=== PATIENT | female | born 1935 | race Caucasian/White ===

== ENCOUNTER 2021-08-19 12:40 | Emergency (ER) | payer MEDICARE ==
[~2021-08-19] VITALS: Ht 165.1 cm; Wt 56.7 kg
[2021-08-19 12:45] VITALS: BP 174/72
[2021-08-19] MEDS ORDERED: OCTYL 2-CYANOACRYLATE 1 EACH TP ONE ×3 (13:51→14:48)
== END 2021-08-19 15:47 | disposition home or self-care (01) ==
LOC: EDH 12:40
DX: S81.812A Laceration without foreign body, left lower leg, initial encounter (principal); E03.9 Hypothyroidism, unspecified; E78.00 Pure hypercholesterolemia, unspecified; I10 Essential (primary) hypertension; K21.9 Gastro-esophageal reflux disease without esophagitis; Z87.442 Personal history of urinary calculi; Z88.1 Allergy status to other antibiotic agents; Z88.8 Allergy status to other drugs, medicaments and biological substances; X58.XXXA Exposure to other specified factors, initial encounter; Y93.89 Activity, other specified; Y92.89 Other specified places as the place of occurrence of the external cause; Y99.8 Other external cause status
CPT/HCPCS: 12002; 99282